=== PATIENT | female | born 1955 | race Caucasian/White ===

== ENCOUNTER 2016-07-17 06:12 | Day surgery (SDC) | payer MEDICARE, MEDICAID ==
[~2016-07-17] VITALS: Ht 180.3 cm; Wt 101.8 kg
[~2016-07-17 06:12] MED LIST: ALPRAZOLAM PO; AMBIEN 5MG TABLE5 MG PO; AMITRIPTYLINE H25 M1 PO; ASPIR-LOW81 MG PO; ATIVAN 0.50.5 MG/TAB PO; BIRTH CONTROL PO; BUSPAR DIVIDOSE15 MG PO; BUSPAR10 MG PO; BUSPIRONE; CARDIZEM CD120 MG PO; CARDIZEM ER 12120 MG PO; COUMADIN 2MG2 MG/TAB PO; COUMADIN1 MG PO; COUMADIN2.5 MG PO; COUMADIN4 MG PO; CYMBALTA 30MG30 MG PO; CYPROHEPTADINE H4 MG PO; DESYREL DIVIDO150 MG PO; DILT-CD120 MG PO; DILT-XR180 MG PO; EXCEDRIN1 TAB PO; FLEXERIL 1010 MG/TAB PO; FLORINEF ACETA0.1 MG PO; FLUOXETINE; GABAPENTIN100 MG PO; GABAPENTIN300 M1 PO; INDERAL 10MG10 MG PO; Invega PO; LAMISIL PO; LOMOTIL 0.025 M1 TAB PO; MELATONIN1 M1 PO; MINIPRESS 1M1 MG/CAP PO; MIRALAX17 GM/DOSE PO; MORPHINE 1515 MG/TAB PO; MORPHINE10 MG PO; MS CONTIN 115 MG/TAB PO; MSIR15 MG PO; NEURONTIN300 MG PO; NITROQUICK0.4 MG SL; NORCO 325 MG-51 TAB PO; ONDANSETRON4 MG PO; PAC PO; PHENERGAN 25 TA25 MG PO; PRILOSEC 20MG20 MG PO; PRISTIQ50 M1 PO; PROZAC20 MG PO; PROZAC40 MG PO; PYRIDIUM 100MG100 MG PO; REMERON30 MG PO; REMERON45 MG PO; SENOKOT S 50 MG1 TAB PO; SEROPHENE50 MG PO; SEROQUEL 2525 MG/TAB PO; SEROQUEL XR300 MG PO; SEROQUEL300 MG PO; SIMVASTATIN40 MG PO; TRAMADOL50 MG PO; TRAZODONE HCL100 MG PO; TRAZODONE100 MG PO; TRAZODONE50 MG PO; ULTRAM ER100 MG PO; UNABLE; UNRESPONSIVE; VALIUM 2MG T2 MG/TAB PO; WELLBUTRIN XL300 M1 PO; ZOCOR 40MG40 MG PO; ZOCOR40 MG PO; ZOFRAN4 M1 PO; see list
[2016-07-17] MEDS ORDERED: ATIVAN 0.50.5 MG/TAB PO (08:35)
[2016-07-17] MEDS ORDERED: ZOFRAN ODT8 MG PO (08:36)
[2016-07-17] MEDS ORDERED: SEROQUEL 1100 MG/TAB PO (08:36)
[2016-07-17] MEDS ORDERED: CARDIZEM CD 24240 MG PO (08:38)
[2016-07-17] MEDS ORDERED: SYNTHROID0.05 MG/TA PO (08:39)
[2016-07-17] MEDS ORDERED: PROZAC 20MG20 MG PO (08:39)
[2016-07-17] MEDS ORDERED: WELLBUTRIN XL150 MG PO (08:40)
[2016-07-17] MEDS ORDERED: MULTIPLE VITAMI1 CAP PO (08:41)
[2016-07-17] MEDS ORDERED: ASPIRIN 81M81 MG/TA2 PO (08:41)
[2016-07-17] MEDS ORDERED: MELATONIN5 M1 PO (08:41)
[2016-07-17 09:09] VITALS: BP 102/66; PULSE 82; TEMP 99
[2016-07-17 14:30] VITALS: BP 102/66; PULSE 79; TEMP 97.9
[2016-07-17 14:45] VITALS: BP 108/70; PULSE 80
[2016-07-17] MEDS ORDERED: NORCO 325 MG-51 TAB PO (14:46)
[2016-07-17 15:15] VITALS: BP 119/68; PULSE 75
== END 2016-07-17 15:45 | disposition home or self-care (01) ==
LOC: SDCO 06:12
DX: C50.512 Malignant neoplasm of lower-outer quadrant of left female breast (principal); Z17.0 Estrogen receptor positive status [ER+]; E11.8 Type 2 diabetes mellitus with unspecified complications; I49.5 Sick sinus syndrome; Z95.0 Presence of cardiac pacemaker
CPT/HCPCS: A9541; J0690; J1100; J2250; J2270; J2405; J2704; J3010; J7030

== ENCOUNTER 2016-12-02 14:33 | Emergency (ER) | payer MEDICARE, MEDICAID ==
[~2016-12-02] VITALS: Ht 180.3 cm; Wt 102.7 kg
[~2016-12-02 14:33] MED LIST changes: +ASPIRIN 81M81 MG/TA2 PO; +CARDIZEM CD 24240 MG PO; +MELATONIN5 M1 PO; +MULTIPLE VITAMI1 CAP PO; +PROZAC 20MG20 MG PO; +SEROQUEL 1100 MG/TAB PO; +SYNTHROID0.05 MG/TA PO; +WELLBUTRIN XL150 MG PO; +ZOFRAN ODT8 MG PO
[2016-12-02 14:37] VITALS: TEMP 99
[2016-12-02] MEDS ORDERED: ZOCOR 40MG40 MG PO (15:21)
[2016-12-02] MEDS ORDERED: PROZAC 20MG20 MG PO (15:21)
[2016-12-02] MEDS ORDERED: SEROQUEL50 MG PO (15:21)
[2016-12-02] MEDS ORDERED: CARDIZEM CD 24240 MG PO (15:21)
[2016-12-02] MEDS ORDERED: WELLBUTRIN 100100 MG PO (15:22)
[2016-12-02] MEDS ORDERED: LEXAPRO 10MG10 MG PO (15:22)
[2016-12-02] MEDS ORDERED: ARIMIDEX1 MG PO (15:22)
[2016-12-02] MEDS ORDERED: SYNTHROID0.05 MG/TA PO (15:23)
[2016-12-02] MEDS ORDERED: BUSPAR 30MG30 MG/TAB PO (15:23)
[2016-12-02] MEDS ORDERED: MORPHINE 1515 MG/TAB PO (15:24)
[2016-12-02] MEDS ORDERED: MINIPRESS2 MG (15:24)
[2016-12-02] MEDS ORDERED: ATIVAN 0.50.5 MG/TAB PO (15:24)
[2016-12-02] MEDS ORDERED: PRILOSEC 20MG20 MG PO (15:24)
[2016-12-02] MEDS ORDERED: ASPIRIN 81M81 MG/TA2 PO (15:24)
[2016-12-02] MEDS ORDERED: EXCEDRIN TENSIO1 TAB PO (15:25)
[2016-12-02] MEDS ORDERED: CALCIUM-MAGNES1 EAC1 PO (15:25)
[2016-12-02] MEDS ORDERED: MELAT3MGTAB (15:25)
[2016-12-02] MEDS ORDERED: EPA FISH OIL1 SGL PO (15:25)
[2016-12-02] MEDS ORDERED: VITAMIN C500 MG PO (15:26)
[2016-12-02] MEDS ORDERED: INFANTS AQU400 IU/ML PO (15:26)
[2016-12-02] MEDS ORDERED: IRON325 MG PO (15:26)
[2016-12-02 15:53] LABS: PH 6 (5-8); URINE APPEARANCE Clear; URINE BILIRUBIN Negative (NEGATIVE); URINE BLOOD Negative (NEGATIVE); URINE COLOR Yellow; URINE GLUCOSE Negative (NEGATIVE); URINE KETONE Negative (NEGATIVE); URINE UROBILINOGEN Negative (NEGATIVE)
[2016-12-02 15:58] LABS: URINE WBC 0-2 /hpf
[2016-12-02 15:59] LABS: SQUAMOUS EPITHELIAL 0-2 /hpf
[2016-12-02 16:05] LABS: BASO # 0.1 (0.0-0.2); BASO % 1.3 % (0.0-2.0); EOS # 0.2 (0.0-0.7); EOS % 1.9 % (0-4.0); GRAN # 5.7 (1.4-6.5); GRAN % 72.1 % (42.2-75.2); HEMATOCRIT 38.2 % (37.0-47.0); HEMOGLOBIN 12.7 g/dl (12.5-16.0); LYMPH # 1.2 (1.2-3.4); LYMPH % 15.5 % (20.0-51.0); MEAN CELL VOLUME 91 fl (80.0-100.0); MEAN CORPUSCULAR HEMOGLOBIN 30 pg (27.0-31.0); MEAN CORPUSCULAR HGB CONC 33 g/dl (33.0-37.0); MEAN PLATELET VOLUME 10.3 fl (7.4-10.4); MONO # 0.7 (0.1-0.6); MONO % 8.6 % (1.7-9.3); PLATELET COUNT 307 K/mm3 (130-400); RED BLOOD COUNT 4.21 M/mm3 (4.10-5.30); REDCELL DISTRIBUTION WIDTH-CV 13.8 % (11.5-14.5); WHITE BLOOD COUNT 7.9 K/mm3 (4.8-10.8)
[2016-12-02 16:24] LABS: ADJUSTED CALCIUM 8.5 mg/dL (8.4-10.2); ALANINE AMINOTRANSFERASE 29 U/L (9-52); ALBUMIN 4.6 gm/dL (3.5-5.0); ALKALINE PHOSPHATASE 77 U/L (50-136); ANION GAP 14 mmol/L (7-16); BILIRUBIN,TOTAL 0.7 mg/dL (0.0-1.0); BLOOD UREA NITROGEN 16 mg/dL (7-17); C-REACTIVE PROTEIN 0.9 mg/dL (0.0-0.9); CARBON DIOXIDE 22 mmol/L (22-30); CHLORIDE 102 mmol/L (98-107); CREATININE, serum 0.91 mg/dL (0.52-1.25); GLUCOSE 88 mg/dL (74-106); LIPASE 137 U/L (23-300); POTASSIUM 4.5 mmol/L (3.4-5.0); SODIUM 138 mmol/L (137-145); TOTAL PROTEIN 8.2 gm/dL (6.4-8.2)
[2016-12-02 16:32] LABS: TROPONIN-I < 0.012 ng/mL (0.000-0.034)
[2016-12-02 16:40] LABS: ERYTHROCYTE SEDIMENTATION RATE 27 mm/hr (0-30)
[2016-12-02] MEDS ORDERED: PERCOCET 325 MG1 TA2 PO (19:09)
[2016-12-02 19:20] VITALS: BP 114/80; PULSE 70
== END 2016-12-02 19:27 | disposition home or self-care (01) ==
LOC: COL.ER 14:33
PROVIDERS: Emergency Medicine
DX: M25.572 Pain in left ankle and joints of left foot (principal); M25.571 Pain in right ankle and joints of right foot; M25.532 Pain in left wrist; R30.0 Dysuria; M25.531 Pain in right wrist; R11.0 Nausea; Z85.3 Personal history of malignant neoplasm of breast; Z87.442 Personal history of urinary calculi; I25.10 Atherosclerotic heart disease of native coronary artery without angina pectoris; F17.210 Nicotine dependence, cigarettes, uncomplicated; I10 Essential (primary) hypertension
CPT/HCPCS: J1170; J2405; J7030

== ENCOUNTER 2017-03-30 15:30 | Emergency (ER) | payer MEDICARE, MEDICAID, OTHER ==
[~2017-03-30] VITALS: Ht 180.3 cm; Wt 104.5 kg
[~2017-03-30 15:30] MED LIST changes: +ARIMIDEX1 MG PO; +BUSPAR 30MG30 MG/TAB PO; +CALCIUM-MAGNES1 EAC1 PO; +EPA FISH OIL1 SGL PO; +EXCEDRIN TENSIO1 TAB PO; +INFANTS AQU400 IU/ML PO; +IRON325 MG PO; +LEXAPRO 10MG10 MG PO; +MELAT3MGTAB; +MINIPRESS2 MG; +PERCOCET 325 MG1 TA2 PO; +SEROQUEL50 MG PO; +VITAMIN C500 MG PO; +WELLBUTRIN 100100 MG PO
[2017-03-30 15:33] VITALS: TEMP 99.3
[2017-03-30] MEDS ORDERED: NORCO 325 MG-51 TAB PO (16:54)
[2017-03-30 17:50] VITALS: BP 116/73; PULSE 71
[2017-03-31] MEDS ORDERED: PERCOCET 325 MG1 TA2 PO (09:24)
== END 2017-03-30 17:52 | disposition home or self-care (01) ==
LOC: COL.ER 15:30
DX: S73.102A Unspecified sprain of left hip, initial encounter (principal); S83.92XA Sprain of unspecified site of left knee, initial encounter; S93.601A Unspecified sprain of right foot, initial encounter; F32.9 Major depressive disorder, single episode, unspecified; Z85.3 Personal history of malignant neoplasm of breast; Z79.82 Long term (current) use of aspirin; Z87.891 Personal history of nicotine dependence; W10.9XXA Fall (on) (from) unspecified stairs and steps, initial encounter; Y93.01 Activity, walking, marching and hiking; Y92.009 Unspecified place in unspecified non-institutional (private) residence as the place of occurrence of the external cause
CPT/HCPCS: J2270; J2405

== ENCOUNTER 2017-03-31 05:54 | Emergency (ER) | payer OTHER, MEDICARE ==
[~2017-03-31] VITALS: Ht 180.3 cm; Wt 104.5 kg
[2017-03-31 05:58] VITALS: TEMP 99.5
[2017-03-31] MEDS ORDERED: PERCOCET 325 MG1 TA2 PO (09:24)
[2017-03-31 09:56] VITALS: BP 104/65; PULSE 84
== END 2017-03-31 09:57 | disposition home or self-care (01) ==
LOC: COL.ER 05:54
DX: M25.562 Pain in left knee (principal); M25.571 Pain in right ankle and joints of right foot; F31.9 Bipolar disorder, unspecified; Z85.3 Personal history of malignant neoplasm of breast; Z79.82 Long term (current) use of aspirin; W19.XXXA Unspecified fall, initial encounter

== ENCOUNTER → 2017-08-08 | Outpatient (CLI) | payer OTHER | LOC: COL.PUL 09:35 | DX: C50.919 Malignant neoplasm of unspecified site of unspecified female breast (principal); J84.10 Pulmonary fibrosis, unspecified; R07.81 Pleurodynia; Z92.3 Personal history of irradiation | CPT/HCPCS: A9503 ==

== ENCOUNTER 2017-08-14 16:57 | Emergency (ER) | payer OTHER ==
[~2017-08-14] VITALS: Ht 180.3 cm; Wt 99.5 kg
[2017-08-14 16:58] VITALS: BP 121/74; PULSE 79; TEMP 98.5
[2017-08-14] MEDS ORDERED: PERCOCET 325 MG1 TA2 PO (18:04)
== END 2017-08-14 19:10 | disposition home or self-care (01) ==
LOC: COL.ER 16:57
DX: R07.89 Other chest pain (principal); E11.9 Type 2 diabetes mellitus without complications; F32.9 Major depressive disorder, single episode, unspecified; Z85.3 Personal history of malignant neoplasm of breast; Z86.718 Personal history of other venous thrombosis and embolism; Z87.312 Personal history of (healed) stress fracture; Z92.21 Personal history of antineoplastic chemotherapy; Z92.3 Personal history of irradiation; Z88.0 Allergy status to penicillin; Z88.1 Allergy status to other antibiotic agents; Z88.5 Allergy status to narcotic agent; Z88.6 Allergy status to analgesic agent; Z88.8 Allergy status to other drugs, medicaments and biological substances; Z90.710 Acquired absence of both cervix and uterus; Z90.49 Acquired absence of other specified parts of digestive tract; Z90.89 Acquired absence of other organs; Z90.12 Acquired absence of left breast and nipple; Z79.82 Long term (current) use of aspirin; F17.210 Nicotine dependence, cigarettes, uncomplicated
CPT/HCPCS: J2270; J2550

== ENCOUNTER → 2018-07-30 | Outpatient (REF) | LOC: ZLAB.WCH 08:31 | DX: Z12.31 Encounter for screening mammogram for malignant neoplasm of breast (principal) ==

== ENCOUNTER → 2019-11-25 | Outpatient (CLI) | payer OTHER | LOC: MC.RAD 14:10 | DX: N63.20 Unspecified lump in the left breast, unspecified quadrant (principal); N64.89 Other specified disorders of breast; Z98.890 Other specified postprocedural states; Z92.3 Personal history of irradiation | CPT/HCPCS: G0279 ==

== ENCOUNTER → 2019-11-27 | Outpatient (CLI) | payer OTHER | LOC: MC.RAD 10:49 | DX: N63.24 Unspecified lump in the left breast, lower inner quadrant (principal) | CPT/HCPCS: A4648 ==

== ENCOUNTER 2021-01-27 18:21 | Emergency (ER) | payer OTHER ==
[~2021-01-27] VITALS: Ht 180.3 cm; Wt 107.7 kg
[2021-01-27 19:55] LABS: HEMATOCRIT 39.9 % (37.0-47.0); MEAN CELL VOLUME 89 fl (80.0-100.0); MEAN CORPUSCULAR HEMOGLOBIN 29 pg (27.0-31.0); MEAN CORPUSCULAR HGB CONC 33 g/dl (33.0-37.0); MEAN PLATELET VOLUME 11.8 fl (7.4-10.4); PLATELET COUNT 215 K/mm3 (130-400); RED BLOOD COUNT 4.51 M/mm3 (4.10-5.30); REDCELL DISTRIBUTION WIDTH-CV 14.9 % (11.5-14.5)
[2021-01-27 20:04] LABS: ALANINE AMINOTRANSFERASE 15 U/L (4-34); ALBUMIN 4.3 gm/dL (3.5-5.0); ALKALINE PHOSPHATASE 91 U/L (50-136); ANION GAP 8 mmol/L (7-16); AST,SGOT 22 U/L (15-37); BILIRUBIN,TOTAL 0.4 mg/dL (0.0-1.0); BLOOD UREA NITROGEN 15 mg/dL (7-17); CALCIUM 8.9 mg/dL (8.4-10.2); CARBON DIOXIDE 21 mmol/L (22-30); CHLORIDE 109 mmol/L (98-107); CREATININE, serum 0.87 (0.52-1.25); GLUCOSE 103 mg/dL (74-106); POTASSIUM 4.1 mmol/L (3.4-5.0); SODIUM 137 mmol/L (137-145); TOTAL PROTEIN 8.2 gm/dL (6.4-8.2)
[2021-01-27 20:12] LABS: BAND 2 % (0-10); EOSINOPHIL 2 % (0-4); HYPOCHROMIA 1+; LYMPHOCYTE 26 % (20.0-51.0); NEUTROPHILS 52 % (42.0-75.2); PLATELET ESTIMATE NORMAL (NORMAL)
[2021-01-27 20:23] LABS: COLLECTION METHOD CLEAN CATCH
[2021-01-27 20:27] LABS: LIPASE 297 U/L (23-300)
[2021-01-27 20:33] LABS: PH 6 (5-8); SQUAMOUS EPITHELIAL 0-2 /hpf; URINE APPEARANCE Clear; URINE BACTERIA None Seen /hpf; URINE BILIRUBIN Negative (NEGATIVE); URINE BLOOD Negative (NEGATIVE); URINE COLOR Straw; URINE GLUCOSE Negative (NEGATIVE); URINE KETONE Negative (NEGATIVE); URINE LEUKOCYTE ESTERASE Negative (NEGATIVE); URINE NITRATE Negative (NEGATIVE); URINE PROTEIN(semi-quant) Negative (NEGATIVE); URINE RBC 0-2 /hpf; URINE UROBILINOGEN Negative (NEGATIVE)
[2021-01-27 20:48] LABS: TROPONIN-I < 0.012 ng/mL (0.000-0.035)
[2021-01-27] MEDS ORDERED: ZITHROMAX Z PA250 MG PO ×2 (21:31→21:57)
[2021-01-27 22:00] VITALS: BP 120/92; PULSE 73; TEMP 98.2
== END 2021-01-27 22:03 | disposition home or self-care (01) ==
LOC: COL.ER 18:21
PROVIDERS: Emergency Medicine
DX: R51.9 Headache, unspecified (principal); F31.9 Bipolar disorder, unspecified; E78.5 Hyperlipidemia, unspecified; E11.9 Type 2 diabetes mellitus without complications; Z20.822 Contact with and (suspected) exposure to COVID-19; Z88.6 Allergy status to analgesic agent; Z79.899 Other long term (current) drug therapy

== ENCOUNTER → 2023-07-01 | Outpatient (CLI) | payer OTHER ==
[~2023-07-01] MED LIST changes: +ACIDOPHILIS PO; +ANTI-DIARRHEAL2 MG PO; +ASMANEX HF100 MCG/Ac IH; +B-121000 MCG PO; -BUSPAR 30MG30 MG/TAB PO; +DESYREL 100MG100 MG PO; +FOLIC ACID 11 MG/TA1 PO; +GLUCERNA 240 M240 ML PO; +IMITREX50 MG PO; +LEVAQUIN 5500 MG/TA1 PO; +LIPITOR 80MG80 MG PO; +MASON NATURAL2000 IU PO; +METAMUCIL3.4 GM/DOS PO; +MOBIC15 MG PO; +NESINA25 PO; +NEURONTIN300 MG/CAP PO; +PROAIR HFA0.09 MG/AC IH; +PROAMATINE 5MG T5 MG PO; +REFRESH TEARS 330 ML OP; +ROBAXIN 75750 MG/TAB PO; +SALONPAS1 EACH TP; +STIOLTO RESPIMAT4 GM IH; +TAGRISSO80 MG PO; +TAMBOCOR 1100 MG/TAB PO; +TOPROL XL 25MG25 MG PO; +TYLENOL 500MG500 MG PO; +YUVAFEM10 MCG VG; +ZITHROMAX Z PA250 MG PO; +ZOFRAN ODT4 MG PO; +ZYPREXA10 MG PO
== END ==
LOC: COL.RAD 08:18
DX: C34.2 Malignant neoplasm of middle lobe, bronchus or lung (principal); R42 Dizziness and giddiness
CPT/HCPCS: Q9967

== ENCOUNTER → 2023-10-10 | Outpatient (CLI) | payer OTHER, MEDICARE ==
[~2023-10-10] MED LIST changes: +Iohexol 300 - 100 ML VIAL IV ONE; +NS 100 ML IV SCH
== END ==
LOC: COL.RAD 08:13
DX: C34.2 Malignant neoplasm of middle lobe, bronchus or lung (principal)
CPT/HCPCS: Q9967

== ENCOUNTER 2024-05-01 08:54 | Day surgery (SDC) | payer OTHER, MEDICARE ==
[~2024-05-01] VITALS: Ht 180.3 cm; Wt 91.5 kg
[~2024-05-01 08:54] MED LIST changes: +AJOVY225 MG/1.5 SQ; +ASMANEX HF100 MCG/Ac INH; +ATARAX50 MG PO; +ATROVENT INHALE14 GM IH; +BENTYL 20MG20 MG/TAB PO; +BONINE25 MG PO; +COLESTID 1GM1 G PO; +DESYREL DIVIDO150 M1 PO; +ELIQUIS 5MG PO; +FIORICET 325 MG1 TA1 PO; +FLONASEALLERGY NS; +IMODIUM 2MG CAPS2 MG PO; -Iohexol 300 - 100 ML VIAL IV ONE; +KLONOPIN 1MG1 MG PO; +LACTOBACILLUS PO; +LR 1,000 ML IV SCH; +NICODERM C21 MG/PATC TD; -NS 100 ML IV SCH; +Ondansetron 4 MG/2 ML VIAL IV PRN; +PROAMATINE2.5 MG PO; +PROBIOTIC ACID1 EAC3 PO; +REFRESH PLUS 00.4 M1 OU; +ROXICODONE 55 MG/TAB PO; +TRIAMCINOLONE A15 G3 TP; +VOLTAREN GEL 1%1 TU TP; +ZOFRAN 4MG T4 MG/TAB PO
[2024-05-01 09:36] VITALS: BP 104/74; PULSE 94; TEMP 97.6
--- NOTE | 2024-05-01 10:24 | NUR ---
The patient ambulated back to [place] [facility] independently using a steady gait and appeared to tolerate the activity well. Vital signs obtained. Consent signed. Assessment completed. Home medications reconcilled. Friend, Lyla, at bedside. Warm blankets provided to both of them. Denies any further needs at this time.
[2024-05-01] MEDS ORDERED: Lidocaine PF 2% (20 MG/ML) 5 ML VIAL ONE (10:39)
[2024-05-01 11:45] VITALS: BP 102/65; PULSE 96; TEMP 96.8
--- NOTE | 2024-05-01 11:45 | NUR ---
PATIENT AMBULATED TO CHAIR WITH STEADY GAIT, ASSIST OF 2. ALERT AND AWAKE. DENIES PAIN, NAUSEA AND SHORTNESS OF BREATH. BREATHING REGULAR AND UNLABORED ON ROOM AIR. SKIN WARM AND DRY. IV IN PLACE. NURSE HANDOFF COMPLETED IN ROOM. SEE CHART FOR VITAL SIGNS. PATIENT HAD PEPSI AND A MUFFIN, BOTH TOLERATED WELL WITH NO DYSPHAGIA. CALL LIGHT IN REACH. PATIENT STATES "I'M READY TO GO HOME".
[2024-05-01 12:00] VITALS: BP 100/68; PULSE 98
[2024-05-01 12:15] VITALS: BP 108/65; PULSE 92
--- NOTE | 2024-05-01 12:17 | NUR ---
1153: MET WITH PATIENT IN ROOM TO DISCUSS PROCEDURE. 1214: DISCHARGE TEACHING COMPLETED WITH PRINTED EDUCATION AND INSTRUCTIONS SENT HOME WITH PATIENT. PATIENT VERBALIZED UNDERSTANDING OF TEACHING. 1216: IV REMOVED. GAUZE AND COBAN PLACED OVER SITE. 1217: PATIENT DISCHARGED HOME WITH [facility].
== END 2024-05-01 12:17 | disposition home or self-care (01) ==
LOC: SDCO 08:54
DX: D12.2 Benign neoplasm of ascending colon (principal); D12.3 Benign neoplasm of transverse colon; D50.9 Iron deficiency anemia, unspecified; K29.80 Duodenitis without bleeding; K58.2 Mixed irritable bowel syndrome; K21.00 Gastro-esophageal reflux disease with esophagitis, without bleeding; I49.5 Sick sinus syndrome; J44.9 Chronic obstructive pulmonary disease, unspecified; E66.9 Obesity, unspecified; F17.210 Nicotine dependence, cigarettes, uncomplicated; Z86.73 Personal history of transient ischemic attack (TIA), and cerebral infarction without residual deficits; Z86.718 Personal history of other venous thrombosis and embolism; Z95.0 Presence of cardiac pacemaker; Z79.01 Long term (current) use of anticoagulants; Z85.3 Personal history of malignant neoplasm of breast; Z85.118 Personal history of other malignant neoplasm of bronchus and lung; Z79.82 Long term (current) use of aspirin
CPT/HCPCS: J2704